=== PATIENT | male | born 1980 | race Caucasian/White ===

== ENCOUNTER 2016-08-12 09:51 | Emergency (ER) | payer OTHER ==
[2016-08-12] MEDS ORDERED: NORMAL SALINE 1000 ML 1,000 ML IV ONE ×2 (11:29)
[2016-08-12] MEDS ORDERED: PROCHLORPERAZINE EDISYLATE INJ 10 MG/2 ML VIAL IV ONE (11:29)
[2016-08-12] MEDS ORDERED: ONDANSETRON HCL INJ/PF 4 MG/2 ML SDV IV ONE (11:29)
[2016-08-12 12:31] LABS: ABSOLUTE EOSINOPHILS # (AUTO) 0.1 10^3/uL (0.0-0.6); ABSOLUTE LYMPHOCYTES (AUTO) 1.8 10^3/uL (0.5-4.7); ABSOLUTE MONOCYTES (AUTO) 0.5 10^3/uL (0.1-1.4); ABSOLUTE NEUT (AUTO) 4.6 10^3/uL (1.7-8.2); BASOPHILS % (AUTO) 0.7 % (0-2); EOSINOPHILS % (AUTO) 0.8 % (0-6); HEMATOCRIT 46.6 % (37.9-51.0); HEMOGLOBIN 16.1 g/dL (13.5-17.0); HGB HCT DIFFERENCE 1.7; LYMPHOCYTES % (AUTO) 25.2 % (13-45); MEAN CORPUSCULAR HEMOGLOBIN 31.6 pg (27.0-33.4); MEAN CORPUSCULAR HGB CONC 34.6 g/dL (32.0-36.0); MEAN CORPUSCULAR VOLUME 91 fl (80-97); MONOCYTES % (AUTO) 7.8 % (3-13); PROTHROMBIN TIME 12.6 SEC (11.4-15.4); RED BLOOD COUNT 5.09 10^6/uL (4.35-5.55); RED CELL DISTRIBUTION WIDTH 13.6 % (11.5-14.0); SEGMENTED NEUTROPHILS % (AUTO) 65.5 % (42-78); WHITE BLOOD COUNT 7.1 10^3/uL (4.0-10.5)
[2016-08-12 12:32] LABS: PARTIAL THROMBOPLASTIN TIME 29.9 SEC (23.5-35.8)
[2016-08-12 12:45] LABS: ANION GAP 9 (5-19); BLOOD UREA NITROGEN 16 mg/dL (7-20); CALCIUM 10.1 mg/dL (8.4-10.2); CARBON DIOXIDE 29 mmol/L (22-30); CHLORIDE 102 mmol/L (98-107); CREATININE RESULT 1.12 mg/dL (0.52-1.25); GLUCOSE 95 mg/dL (75-110); POTASSIUM 4.5 mmol/L (3.6-5.0); SODIUM 139.9 mmol/L (137-145)
[2016-08-12] MEDS ORDERED: KETOROLAC TROMETHAMINE INJ/PF 30 MG/1 ML SDV IV ONE (14:20)
[2016-08-12] MEDS ORDERED: DEXAMETHASONE SOD PHOS INJ 10 MG/1 ML VIAL IV ONE (14:20)
[2016-08-12] MEDS ORDERED: DEXAMETHASONE 4 MG TABLET PO ONE (14:21)
--- NOTE | 2016-08-12 14:26 | ER Document Report ---
ED Headache - General Chief Complaint: Headache, Worst Ever Stated Complaint: HEAD PAIN TRAVEL OUTSIDE OF THE [place] IN LAST 30 DAYS: No - Related Data Allergies/Adverse Reactions: No Known Allergies Allergy (Unverified 08/12/16 10:01) Past Medical History - Social History Smoking Status: Never Smoker Chew tobacco use (# tins/day): No Frequency of alcohol use: None Drug Abuse: None Patient has suicidal ideation: No Patient has homicidal ideation: No Renal/ Medical History: Denies: Hx Peritoneal Dialysis GI Medical History: Reports: Hx Hiatal Hernia Physical Exam - Vital signs Vitals: Temp Pulse Resp BP Pulse Ox 97.7 F 76 18 126/84 H 98 08/12/16 10:01 08/12/16 10:01 08/12/16 10:01 08/12/16 10:01 08/12/16 10:01 Course - Vital Signs Vital signs: Temp Pulse Resp BP Pulse Ox 97.7 F 76 18 126/84 H 98 08/12/16 10:01 08/12/16 10:45 08/12/16 10:45 08/12/16 10:45 08/12/16 10:45 - Laboratory Result Diagrams: 08/12/16 10:30 08/12/16 10:30 Discharge - Discharge Clinical Impression: Headache Qualifiers: Headache type: unspecified Headache chronicity pattern: unspecified pattern Intractability: not intractable Qualified Code(s): R51 - Headache Condition: Good Disposition: HOME, SELF-CARE Instructions: Cluster Headache ([facility]), Headache ([facility]), Neurologist Additional Instructions: Your CT scan and MRI today showed no acute pathology causing your headache. I would highly recommend following up with your primary care physician for possible referred to a neurologist. Return to the ER symptoms worsen. Please drink plenty of water. No strenuous activity until you see your physician Prescriptions: Butalb/Acetaminophen/Caffeine [Fioricet 50-300-40 mg Capsule] 1 cap PO Q4 PRN # 20 cap PRN Reason:
[2016-08-12 15:14] VITALS: BP 119/64
--- NOTE | 2016-08-12 15:58 | ER Document Report ---
ED General - General Chief Complaint: Headache, Worst Ever Stated Complaint: HEAD PAIN TRAVEL OUTSIDE OF THE [place] IN LAST 30 DAYS: No - HPI Patient complains to provider of: headache Notes: Patient coming in for evaluation of headache. Patient states headache left side with photophobia ongoing for the last 3 days. States that the headache is worse headache he has had had of his life. States that she was working out when the headache started states since that time last 2 days been trying to work however when he does does very dizzy and unbalanced. Denies any trauma to left side of his head. Denies any fevers chills nausea vomiting. Patient otherwise will have any other past medical history. - Related Data Allergies/Adverse Reactions: No Known Allergies Allergy (Unverified 08/12/16 10:01) Past Medical History - Social History Smoking Status: Never Smoker Chew tobacco use (# tins/day): No Frequency of alcohol use: None Drug Abuse: None Family History: Reviewed & Not Pertinent Patient has suicidal ideation: No Patient has homicidal ideation: No Renal/ Medical History: Denies: Hx Peritoneal Dialysis GI Medical History: Reports: Hx Hiatal Hernia Review of Systems - Review of Systems Constitutional: No symptoms reported EENT: No symptoms reported Cardiovascular: No symptoms reported Respiratory: No symptoms reported Gastrointestinal: No symptoms reported Genitourinary: No symptoms reported Male Genitourinary: No symptoms reported Musculoskeletal: No symptoms reported Skin: No symptoms reported Hematologic/Lymphatic: No symptoms reported Neurological/Psychological: Headaches -: Yes All other systems reviewed and negative Physical Exam - Vital signs Vitals: Temp Pulse Resp BP Pulse Ox 97.7 F 76 18 126/84 H 98 08/12/16 10:01 08/12/16 10:01 08/12/16 10:01 08/12/16 10:01 08/12/16 10:01 Interpretation: Normal - General General appearance: Appears well, Alert - HEENT Head: Normocephalic, Atraumatic Eyes: Normal Conjunctiva: Normal Cornea: Normal Extraocular movements intact: Yes Eyelashes: Normal Pupils: PERRL Anterior chamber: Normal Fundascopic: Normal - Pain with examination of the left eye Ears: Normal External canal: Normal Tympanic membrane: Normal Sinus: Normal Nasal: Normal Mouth/Lips: Normal Pharynx: Normal Neck: Normal - Respiratory Respiratory status: No respiratory distress Chest status: Nontender Breath sounds: Normal Chest palpation: Normal - Cardiovascular Rhythm: Regular Heart sounds: Normal auscultation Murmur: No - Abdominal Inspection: Normal Distension: No distension Bowel sounds: Normal Tenderness: Nontender Organomegaly: No organomegaly - Back Back: Normal, Nontender - Extremities General upper extremity: Normal inspection, Nontender, Normal color, Normal ROM , Normal temperature General lower extremity: Normal inspection, Nontender, Normal color, Normal ROM , Normal temperature, Normal weight bearing. No: Kadi's sign - Neurological Neuro grossly intact: Yes Cognition: Normal Orientation: AAOx4 Saman Coma Scale Eye Opening: Spontaneous [place]son Coma Scale Verbal: Oriented H[place]son Coma Scale Motor: Obeys Commands Hixson Coma Scale Total: 15 Speech: Normal Motor strength normal: LUE, RUE, LLE, RLE Sensory: Normal - Psychological Associated symptoms: Normal affect, Normal mood - Skin Skin Temperature: Warm Skin Moisture: Dry Skin Color: Normal Course - Re-evaluation Re-evalutation: 08/12/16 15:56 I did discuss with our radiology team Dr. Mar by the best course of action as far as imaging the patient. Recommend CT scan without and then a MRI of the brain and a [place] [employer] [place] study. All the studies returned negative for any acute pathology. Upon reevaluation patient states still having a headache. We' ll treat the patient with a dose of Decadron and ketorolac however this time no acute pathology no signs of bleeding signs of epicardial mass the signs of aneurysm. Patient with discharged home encouraged follow-up with his physician at the [facility] and also neurology and [facility]. A copy of the patient's MRIs and CT scans were given to him on a cd. We'll treat patient's pain with Fioricet. Patient was encouraged to undergo any strenuous activity until cleared by his PCP - Vital Signs Vital signs: Temp Pulse Resp BP Pulse Ox 97.5 F 58 L 16 119/64 100 08/12/16 15:05 08/12/16 15:05 08/12/16 15:05 08/12/16 15:05 08/12/16 15:05 - Laboratory Result Diagrams: 08/12/16 10:30 08/12/16 10:30 Discharge - Discharge Clinical Impression: Headache Qualifiers: Headache type: unspecified Headache chronicity pattern: unspecified pattern Intractability: not intractable Qualified Code(s): R51 - Headache Condition: Good Disposition: HOME, SELF-CARE Instructions: Cluster Headache ([facility]), Headache ([facility]), Neurologist Additional Instructions: Your CT scan and MRI today showed no acute pathology causing your headache. I would highly recommend following up with your primary care physician for possible referred to a neurologist. Return to the ER symptoms worsen. Please drink plenty of water. No strenuous activity until you see your physician Prescriptions: Butalb/Acetaminophen/Caffeine [Fioricet 50-300-40 mg Capsule] 1 cap PO Q4 PRN # 20 cap PRN Reason:
== END 2016-08-12 15:14 | disposition home or self-care (01) ==
LOC: ER 09:51
DX: R51 Headache (principal); H53.142 Visual discomfort, left eye
CPT/HCPCS: 99284; 96361; 96374; 96375; 36415; 85025; 85610; 85730; 80048; 70551; 70544; 70450; J1885; J0780; J2405; J7030